=== PATIENT | male | born 1970 | race Caucasian/White ===

== ENCOUNTER 2018-11-15 16:29 | Emergency (ER) | payer BC ==
[~2018-11-15] VITALS: Ht 177.8 cm; Wt 84.1 kg
[2018-11-15 17:04] LABS: BASO # 0.1 10^3/uL (0.0-0.2); BASO % 0.7 % (0.0-1.0); EOS # 0.2 10^3/uL (0.0-0.50); EOS % 1.9 % (0.0-3.0); HEMATOCRIT 44.6 % (42.0-52.0); HEMOGLOBIN 15.7 g/dl (13.5-17.5); LYMPH # 2.8 10^3/uL (1.5-4.5); LYMPH % 26.2 % (24.0-44.0); MEAN CORPUSCULAR HEMOGLOBIN 31.1 pg (27.0-33.0); MEAN CORPUSCULAR HGB CONC 35.2 g/dl (32.0-36.5); MEAN CORPUSCULAR VOLUME 88.3 fl (80.0-96.0); MONO # 0.9 10^3/uL (0.0-0.8); MONO % 8.9 % (0.0-5.0); NEUTROPHILS # 6.6 10^3/uL (1.8-7.7); PLATELET COUNT, AUTOMATED 309 10^3/uL (150-450); RED BLOOD COUNT 5.05 10^6/uL (4.30-6.10); WHITE BLOOD COUNT 10.6 10^3/uL (4.0-10.0)
[2018-11-15 17:32] LABS: ALBUMIN 4.2 GM/DL (3.2-5.2); ALT/SGPT 19 U/L (12-78); BILIRUBIN,DIRECT 0.1 MG/DL (0.0-0.2); BILIRUBIN,TOTAL 0.3 MG/DL (0.2-1.0); BLOOD UREA NITROGEN 16 MG/DL (7-18); CALCIUM LEVEL 9.3 MG/DL (8.5-10.1); CARBON DIOXIDE LEVEL 28 MEQ/L (21-32); CHLORIDE LEVEL 108 MEQ/L (98-107); CREATININE FOR GFR 1.09 MG/DL (0.70-1.30); GLOMERULAR FILTRATION RATE > 60.0 (>60); GLUCOSE, FASTING 79 MG/DL (70-100); LIPASE 302 U/L (73-393); POTASSIUM SERUM 4.7 MEQ/L (3.5-5.1); SODIUM LEVEL 142 MEQ/L (136-145); TOTAL PROTEIN 7.8 GM/DL (6.4-8.2)
[2018-11-15] MEDS ORDERED: PEPC1TAB5 PO (18:31)
[2018-11-15] MEDS ORDERED: SIME180C PO (18:31)
[2018-11-15 18:44] VITALS: BP 148/90
--- NOTE | 2018-11-15 19:12 | REP ---
REASON: Right upper quadrant pain. COMPARISON: None. FINDINGS: KUB shows the intestinal gas pattern to be nonspecific. The organ silhouettes insofar as delineated are unremarkable. There is no evidence of free intraperitoneal air. IMPRESSION: Nonspecific. Electronically Signed by Erik Romano DO 11/15/2018 07:46 P
--- NOTE | 2018-11-15 19:17 | REP ---
REASON FOR EXAMINATION: Right upper quadrant pain. COMPARISON EXAMINATION: 07/12/2015, which was normal. Today's examination shows no significant change from the prior examination. There are no hepatic abnormalities. There is no gallbladder abnormality. There is no intrahepatic or extrahepatic ductal dilatation. The common bile duct measures 4 mm. The pancreas could not be identified due to the patient's intestinal gas pattern. The imaged portion of the right kidney showed no abnormalities. IMPRESSION: Essentially unchanged unremarkable right upper quadrant ultrasound examination. Electronically Signed by Erik Romano DO 11/15/2018 07:47 P
== END 2018-11-15 18:45 | disposition home or self-care (01) ==
LOC: M ED 16:29
DX: R14.0 Abdominal distension (gaseous) (principal)

== ENCOUNTER 2023-10-12 17:58 | Emergency (ER) | payer BC ==
[~2023-10-12] VITALS: Ht 177.8 cm; Wt 85.7 kg
[~2023-10-12 17:58] MED LIST: PEPC1TAB5 PO; SIME180C25 PO
[2023-10-12] MEDS: FLUORESCEIN OPHTH 1MG STRIP OU ONE (21:55)
[2023-10-12] MEDS: TETRACAINE 0.5% OPHTH SOLN 4ML OU ONE (21:55)
[2023-10-12] MEDS ORDERED: CIPR0.3S37 OU (22:21)
[2023-10-12 22:28] VITALS: BP 163/95; TEMP 98; O2SAT 99
[2023-10-12] MEDS: CIPROFLOXACIN 0.3% OPHTH SOLN 2.5ML OU ONE (22:31)
== END 2023-10-12 22:33 | disposition home or self-care (01) ==
LOC: M ED 17:58
DX: H10.33 Unspecified acute conjunctivitis, bilateral (principal); Z79.2 Long term (current) use of antibiotics